=== PATIENT | female | born 1970 | race Two or more races ===

== ENCOUNTER 2021-05-20 14:48 | Outpatient (CLI) | payer OTHER | END 2021-05-20 23:59 | disposition home or self-care (01) | LOC: LAB 14:48 | PROVIDERS: ATTEND Specialist | DX: Z01.812 Encounter for preprocedural laboratory examination (principal); Z20.822 Contact with and (suspected) exposure to COVID-19 | CPT/HCPCS: C9803; U0003 ==

== ENCOUNTER 2021-05-25 05:19 | Day surgery (SDC) | payer OTHER ==
--- NOTE | 2021-05-25 05:30 | NUR ---
DAY SURGERY OPENING NOTES PATIENT ARRIVED ON UNIT FOR RIGHT SHOULDER SURGERY. PT ALERT/ORIENTED X 4, PT ABLE TO MAKE NEEDS KNOWN. PT STABLE ON ROOM AIR, NO S/S OF DISTRESS OR SOB NOTED, BREATHING EVEN AND UNLABORED. PT IS AMBULATORY. BELONGINGS DOCUMENTED AND PLACED IN CHART. PATIENT HAS BEEN NPO SINCE 05/24 10 PM. PATIENT ALLERGIES DOCUMENTED: PENICILLIN, BIAXIN, IODINE, SEAFOOD, PEACHES, PINEAPPLE, APRICOTS, ALMONDS, PECANS. CONSENT FORM FOR PROCEDURE, ANESTHESIA AND BLOOD TRANSFUSION SIGNED. MRSA AND URINE COLLECTED FOR TEST. ORIENTED PATIENT TO ROOM AND HOW TO USE CALL LIGHT. SAFETY MEASURES IN PLACE: CALL LIGHT WITHIN REACH, BED LOCKED IN LOW POSITION, SIDE RAILS UP X 2. WILL CONTINUE TO MONITOR PATIENT
[2021-05-25] MEDS ORDERED: ANESTHESIA TRAY IN PYXIS 1 EA TRAY MC ONE (06:26)
[2021-05-25] MEDS ORDERED: LIDOCAINE 1% INJ 50 ML MDV IJ ONE (06:27)
[2021-05-25] MEDS ORDERED: EPINEPHRINE (1:1000) 1 MG/ML AMPUL ONE (06:27)
[2021-05-25] MEDS ORDERED: methylPREDNISolone ACETATE 80 MG/ML VIAL ONE (06:27)
[2021-05-25 06:54] VITALS: BP 117/81
[2021-05-25] MEDS ORDERED: FENTANYL PF 100MCG/2ML AMPUL ONE (07:12)
[2021-05-25] MEDS ORDERED: ROCURONIUM BROMIDE 50 MG/5 ML ONE (07:12)
[2021-05-25] MEDS ORDERED: CLINDAMYCIN 900 MG/6 ML VIAL ONE (07:16)
[2021-05-25] MEDS ORDERED: HYDROMORPHONE INJ 2 MG/ML DISP.SYRIN ONE (07:56)
[2021-05-25] MEDS ORDERED: ALBUTEROL FS 2.5 MG/3 ML VIAL.NEB ONE (08:44)
[2021-05-25] MEDS ORDERED: ALBUTEROL 17GM INHALER ONE (08:45)
[2021-05-25] MEDS ORDERED: HYDROMORPHONE 1 MG/1 ML DISP.SYRIN ONE (09:18)
[2021-05-25 10:00] VITALS: BP 106/61
--- NOTE | 2021-05-25 10:00 | NUR ---
MS RN NOTES RECEIVED PATIENT FROM SURGERY ENDORSED BY NURSE MIO MOLINA. ON ROOM AIR, TOLERATING WELL. NO SOB NOTED. NOT IN DISTRESS. WITH NO COMPLAINTS OF PAIN AT THIS TIME. VITAL SIGNS CHECKED: STABLE. WITH IV ACCESS AT RIGHT AC G20 WITH NS AT 75ML/HR INFUSING WELL. MADE COMFORTABLE ON BED. SAFETY MEASURES IN PLACE. CALL LIGHT WITHIN REACH. BED ON LOWEST AND LOCKED POSITION, SIDE RAILS UP X2. WILL CONTINUE TO MONITOR.
[2021-05-25 10:15] VITALS: BP 121/70
[2021-05-25 10:30] VITALS: BP 117/74
[2021-05-25 10:45] VITALS: BP 115/68
[2021-05-25 11:45] VITALS: BP 120/69
[2021-05-25] MEDS ORDERED: HYDROCODONE/APAP 5/325MG TABLET PO PRN (12:30)
[2021-05-25] MEDS ORDERED: HYDROMORPHONE 1 MG/1 ML DISP.SYRIN IV PRN (12:30)
--- NOTE | 2021-05-25 15:30 | NUR ---
MS SPECIAL POL[employer] OFFICER NOTES PATIENT IS FOR DISCHARGE PER DOCTOR KATELYN'S ORDER. FOR DISCHARGE TO HOME. DISCHARGE INSTRUCTION AND EDUCATION PROVIDED TO PATIENT AND EXPLAINED MEDICATION AND PRESCRIPTION. PATIENT VERBALIZED UNDERSTANDING. DISCHARGE FORM AND BELONGINGS LIST FORM ARE SIGNED BY PATIENT. ALL BELONGINGS ARE ACCOUNTED FOR. NAME WRIST BAND AND IV LINE ARE REMOVED. PATIENT WAS ACCOMPANIED TO THE LOBBY VIA WHEELCHAIR AND WAS PICKED UP BY DAUGHTER VIA PRIVATE CAR IN STABLE CONDITION. CHARGE NURSE AND MD ARE AWARE OF THE DISCHARGE.
== END 2021-05-25 16:00 | disposition home or self-care (01) ==
LOC: DS 05:19 → UNDOADMIN 05:20 → MED 05:20 → UNDODISIN 15:30 → DS 16:00
PROVIDERS: ATTEND Specialist
DX: M75.41 Impingement syndrome of right shoulder (principal); E11.9 Type 2 diabetes mellitus without complications; E66.01 Morbid (severe) obesity due to excess calories; M94.8X1 Other specified disorders of cartilage, shoulder; Z88.0 Allergy status to penicillin; Z88.1 Allergy status to other antibiotic agents; Z88.8 Allergy status to other drugs, medicaments and biological substances; F32.9 Major depressive disorder, single episode, unspecified; Z98.890 Other specified postprocedural states; Z79.899 Other long term (current) drug therapy
CPT/HCPCS: 29807; 29823; 29826; 82962; 84703; 87081; A4217; A4565; C1713 ×2; J0171; J0330; J1100; J1170 ×3; J1885; J2405; J2704; J3010; J3490 ×4; J7030; G0378; J1040